=== PATIENT | female | born 1950 | race Caucasian/White ===

== ENCOUNTER 2016-10-20 00:07 | Emergency (ER) | payer MEDICARE ==
[2016-10-20] MEDS ORDERED: SUBLIMAZE 100 MCG/2 ML IV ONE (00:18)
[2016-10-20] MEDS ORDERED: Sodium Chloride 0.9% 1000 ML 1,000 ML IV STA (00:18)
[2016-10-20] MEDS ORDERED: Zofran 4 MG/2 ML VIAL IV ONE (00:18)
[2016-10-20] MEDS ORDERED: SUBLIMAZE 100 MCG/2 ML ONE (00:21)
[2016-10-20] MEDS ORDERED: Sodium Chloride 0.9% 1000 ML 1,000 ML ONE (00:21)
[2016-10-20] MEDS ORDERED: Zofran 4 MG/2 ML VIAL ONE (00:21)
--- NOTE | 2016-10-20 00:21 | ERPHSYRPT ---
- History of Present Illness Time Seen by Provider: 10/20/16 00:19 Historian: patient Exam Limitations: no limitations Physician History: c/o pain in right flank for 1-2 days, c/o dysurea, nausea. no fever Timing/Duration: yesterday Quality: burning, cramping Abdominal Pain Onset Location: flank (right side) Pain Radiation: no radiation Severity of Pain-Max: moderate Severity of Pain-Current: moderate Modifying Factors: Improves With: nothing Allergies/Adverse Reactions: Sulfa (Sulfonamide Antibiotics) Allergy (Unknown, Verified 03/30/15 21:27) Home Medications: Amlodipine Besylate/Benazepril [Lotrel 10-40 mg Capsule] 1 each PO DAILY [History] Glyburide 5 mg [Micronase 5 MG] 5 mg PO DAILY 03/11/15 [History] Hydrochlorothiazide 25 mg [hydroDIURIL 25 MG] 12.5 mg PO DAILY 03/11/15 [ History] Hydrocodone/APAP 10/325 mg [[place] 10/325 MG Tablet] 1 tab PO Q4-6HPRN PRN 03/11/15 [History] Rivaroxaban 10 mg Tablet [Xarelto 10 mg Tablet] 20 mg PO EVENING MEAL [History] Ropinirole HCl 0.5 mg [Requip 0.5 MG] 0.5 mg PO DAILY 03/11/15 [History] Venlafaxine HCl [Effexor Xr] 150 mg PO DAILY 03/11/15 [History] Hx Tetanus, Diphtheria Vaccination/Date Given: Yes Hx Influenza Vaccination/Date Given: Yes Hx Pneumococcal Vaccination/Date Given: No - Review of Systems Constitutional: No Fever, No Chills Eyes: No Symptoms Ears, Nose, & Throat: No Symptoms Respiratory: No Cough, No Dyspnea Cardiac: No Chest Pain, No Edema, No Syncope Abdominal/Gastrointestinal: Abdominal Pain, No Nausea, No Vomiting, No Diarrhea Genitourinary Symptoms: Dysuria, Flank Pain Musculoskeletal: No Back Pain, No Neck Pain Skin: No Rash Neurological: No Dizziness, No Focal Weakness, No Sensory Changes Psychological: No Symptoms Endocrine: No Symptoms All Other Systems: Reviewed and Negative - Past Medical History Pertinent Past Medical History: Yes Neurological History: No Pertinent History ENT History: No Pertinent History Cardiac History: Hypertension, Other Respiratory History: Sleep Apnea Endocrine Medical History: Diabetes Type II Musculoskeletal History: Degenerative Disk Disease, Osteoarthritis GI Medical History: GERD Psycho-Social History: Depression Female Reproductive Disorders: Menstrual Problems Other Medical History: 1/3 of a kidney. Torn rotator cuff right shoulder. 3 leaky valves. Pulmonary Hypertension - Past Surgical History Past Surgical History: Yes Neuro Surgical History: No Pertinent History Cardiac: No Pertinent History Respiratory: No Pertinent History Gastrointestinal: Cholecystectomy Genitourinary: Kidney Surgery Musculoskeletal: No Pertinent History Female Surgical History: Hysterectomy, Tubal Ligation Other Surgical History: nasal septal repair - keloid removal - Social History Smoking Status: Never smoker Exposure to second hand smoke: No Drug Use: none Patient Lives Alone: No - Nursing Vital Signs Nursing Vital Signs: Initial Vital Signs Temperature 98.6 F Temperature Source Oral Pulse Rate 72 Respiratory Rate 16 Blood Pressure [] 160/92 Pain Intensity 8 - Physical Exam General Appearance: no apparent distress, alert Eye Exam: PERRL/EOMI, eyes nml inspection Ears, Nose, Throat Exam: normal ENT inspection, pharynx normal, moist mucous membranes Neck Exam: normal inspection, non-tender, supple, full range of motion Respiratory Exam: normal breath sounds, lungs clear, No respiratory distress Cardiovascular Exam: regular rate/rhythm, normal heart sounds Gastrointestinal/Abdomen Exam: soft, tenderness (right CVA), No mass Back Exam: normal inspection, normal range of motion, No CVA tenderness, No vertebral tenderness Extremity Exam: normal inspection, normal range of motion, pelvis stable Neurologic Exam: alert, oriented x 3, cooperative, normal mood/affect, nml cerebellar function, sensation nml, No motor deficits Skin Exam: normal color, warm, dry - Course Nursing assessment & vital signs reviewed: Yes - CT Exams Abdomen/Pelvis CT Interpretation: Tele-radiologist Report Ordered Tests: Active Orders 24 hr Category Date Time Status IV Insertion STAT Care 10/20/16 00:41 Active ABDOMEN AND PELVIS W/0 CONTRAS [CT] Stat Exams 10/20/16 00:18 Taken CBC W DIFF Stat Lab 10/20/16 00:27 Completed CMP Stat Lab 10/20/16 00:27 Completed UA W/ MICROSCOPIC Stat Lab 10/20/16 00:27 Completed Medication Summary Discontinued Medications Generic Name Dose Route Start Last Admin Trade Name Freq PRN Reason Stop Dose Admin Fentanyl Citrate 50 mcg 10/20/16 00:18 10/20/16 00:25 Sublimaze 100 Mcg/2 Ml IV 10/20/16 00:19 50 mcg STAT ONE Administration Fentanyl Citrate Confirm 10/20/16 00:21 Sublimaze 100 Mcg/2 Ml Administered 10/20/16 00:22 Dose 100 mcg .ROUTE .STK-MED ONE Sodium Chloride 1,000 mls @ 999 mls/hr 10/20/16 00:18 10/20/16 00:25 Sodium Chloride 0.9% 1000 Ml IV 10/20/16 01:18 999 mls/hr .Q1H1M STA Administration Sodium Chloride Confirm 10/20/16 00:21 Sodium Chloride 0.9% 1000 Ml Administered 10/20/16 00:22 Dose 1,000 mls @ ud .ROUTE .STK-MED ONE Ondansetron HCl 4 mg 10/20/16 00:18 10/20/16 00:25 Zofran 4 Mg/2 Ml Vial IV 10/20/16 00:19 4 mg STAT ONE Administration Ondansetron HCl Confirm 10/20/16 00:21 Zofran 4 Mg/2 Ml Vial Administered 10/20/16 00:22 Dose 4 mg .ROUTE .STK-MED ONE Lab/Rad Data: Laboratory Result Diagrams 10/20/16 00:27 10/20/16 00:27 Laboratory Results 10/20/16 10/20/16 10/20/16 Range/Units 00:27 00:27 00:27 WBC 7.6 (4.0-10.5) K/mm3 RBC 4.45 (4.1-5.4) M/mm3 Hgb 13.9 (12.0-16.0) gm/dl Hct 41.9 (35-47) % MCV 94.2 (78-100) fl MCH 31.2 (26-32) pg MCHC 33.2 (32-36) g/dl RDW 12.8 (11.5-14.0) % Plt Count 162 (150-450) K/mm3 MPV 10.4 H (6-9.5) fl Gran % 55.7 (36.0-66.0) % Lymphocytes % 33.2 (24.0-44.0) % Monocytes % 8.2 (0.0-12.0) % Eosinophils % 2.5 (0.00-5.0) % Basophils % 0.4 (0.0-0.4) % Basophils # 0.03 (0-0.4) Sodium 146 H (136-145) mEq/L Potassium 4.1 (3.5-5.1) mEq/L Chloride 107 (98-107) mEq/L Carbon Dioxide 31.6 (21-32) mEq/L Anion Gap 11.2 (5-15) MEQ/L BUN 18 (9-20) mg/dL Creatinine 0.97 (0.55-1.30) mg/dl Estimated GFR > 60 ML/MIN Glucose 239 H (70-110) MG/DL Calcium 10.5 H (8.5-10.1) mg/dL Total Bilirubin 0.30 (0.2-1.0) mg/dL AST 16 (15-37) U/L ALT 23 (12-78) U/L Alkaline Phosphatase 143 H (46-116) U/L Serum Total Protein 6.7 (6.4-8.2) gm/dL Albumin 3.6 (3.4-5.0) g/dL Ur Collection Type CCMS Urine Color YELLOW (YELLOW) Urine Appearance SLIGHTLY CLOUDY (CLEAR) Urine pH 5.0 (5-6) Ur Specific [place] 1.030 (1.005-1.025) Urine Protein NEGATIVE (Negative) Urine Ketones NEGATIVE (NEGATIVE) Urine Blood TRACE NON-HEM (0-5) Osvaldo/ul Urine Nitrite NEGATIVE (NEGATIVE) Urine Bilirubin NEGATIVE (NEGATIVE) Urine Urobilinogen NORMAL (0-1) mg/dL Ur Leukocyte Esterase NEGATIVE (NEGATIVE) Urine Microscopic RBC 0-2 (0-2) /HPF Urine Microscopic WBC 0-2 (0-5) /HPF Ur Epithelial Cells MODERATE (FEW) /HPF Calcium Oxalate Crystal 10-25 (NEGATIVE) /HPF Urine Bacteria RARE (NEGATIVE) /HPF Urine Glucose NEGATIVE (NEGATIVE) mg/dL Specimen Received 10-20-16 0030 - Progress Progress: improved Counseled pt/family regarding: lab results, diagnosis, need for follow-up, rad results - Departure Time of Disposition: 01:48 Departure Disposition: Home Clinical Impression: Flank pain, chronic Condition: Stable Critical Care Time: Yes Critical Care Time(excluding separately billable procedures): 30-74 minutes Referrals: AMADEO CHAVEZ MD [Primary Care Provider] - Instructions: Abdominal Pain-Adult Additional Instructions: ABDOMINAL PAIN 1. There are several different causes for abdominal pain, some of which may not be able to be identified on initial examination. 2. The important thing to remember is that bodily functions can change in a short period of time. If you notice any of the following symptoms, return to the emergency department or consult your doctor immediately: A. Worsening pain or no improvement in the next 12 hours. B. Increasing, severe abdominal pain C. Blood in stool D. Black stools E. Persistent vomiting F. Fever or chills or other symptoms
[2016-10-20 00:30] LABS: BASOPHIL % 0.4 % (0.0-0.4); Eosinophil % 2.5 % (0.00-5.0); Granulocytes % 55.7 % (36.0-66.0); Lymphocytes % 33.2 % (24.0-44.0); Mean Cell Volume 94.2 fl (78-100); Mean Corpuscular Hemoglobin 31.2 pg (26-32); Mean Platelet Volume 10.4 fl (6-9.5); Monocytes % 8.2 % (0.0-12.0); Platelet Count 162 K/mm3 (150-450); Red Blood Count 4.45 M/mm3 (4.1-5.4); Red Cell Distribution Width 12.8 % (11.5-14.0); White Blood Count 7.6 K/mm3 (4.0-10.5)
[2016-10-20 00:42] LABS: ADD URINE CULTURE? NO (NO); Bacteria RARE /HPF (NEGATIVE); Bilirubin NEGATIVE (NEGATIVE); Blood TRACE NON-HEM Ery/ul (0-5); COMPLETE URINE MICROSCOPIC? YES; Collection Type CCMS; Epithelial Cells MODERATE /HPF (FEW); Glucose NEGATIVE (NEGATIVE); Leukocyte Esterase NEGATIVE (NEGATIVE); WBC 0-2 /HPF (0-5)
[2016-10-20 00:52] LABS: ALBUMIN 3.6 g/dL (3.4-5.0); ALKALINE PHOSPHATASE 143 U/L (46-116); ANION GAP 11.2 MEQ/L (5-15); BLOOD UREA NITROGEN 18 mg/dL (9-20); CHLORIDE 107 mEq/L (98-107); Carbon Dioxide 31.6 mEq/L (21-32); Glucose 239 MG/DL (70-110); Potassium 4.1 mEq/L (3.5-5.1); SGOT/AST 16 U/L (15-37); SGPT/ALT 23 U/L (12-78); SODIUM 146 mEq/L (136-145); Total Protein 6.7 gm/dL (6.4-8.2)
[2016-10-20 00:55] VITALS: BP 160/92; O2SAT 94
[2016-10-20 02:08] VITALS: PULSE 72
--- NOTE | 2016-10-20 06:51 | XRAY ---
Indication: Right flank pain. History of renal stones. Multiple contiguous axial images obtained through the abdomen and pelvis without contrast as ordered. Comparison: CT renal stone study March 31, 2015. Lung bases again demonstrates minimal bibasilar atelectasis/scarring. Heart is not enlarged. Again small hiatal hernia. No renal calculus or evidence for obstructive uropathy in either system. Stable 5.7 cm right renal and 3 cm left upper pole exophytic cysts. Stable faint amorphic calcifications in the right upper renal pole. Stable probable left lobe 3 cm hepatic cyst. Again previous cholecystectomy and scattered calcified splenic granulomas. Noncontrasted stomach and bowel loops appear nonobstructed. Normal appendix. Remaining pancreas, adrenal glands, bladder, and aorta appear unremarkable for noncontrast exam. Osseous structures intact again with mild degenerative changes throughout the spine. Impression: 1. Negative renal calculus or evidence for obstructive uropathy. Stable bilateral renal cysts and right upper pole amorphic calcifications. 2. Stable hepatic cyst and small hiatal hernia. 3. No new or acute intra-abdominal/pelvic abnormalities on this noncontrast exam. Comment: Preliminary interpretation was made by [facility]. No discrepancy. CTDI 23.68
== END 2016-10-20 02:10 | disposition home or self-care (01) ==
LOC: ED 00:07
DX: R10.9 Unspecified abdominal pain (principal); R30.0 Dysuria; I10 Essential (primary) hypertension; E11.9 Type 2 diabetes mellitus without complications
CPT/HCPCS: 36000; 36415; 74176; 80053; 81000; 85025; 96360; 96374; 96375; 99284; J2405; J3010

== ENCOUNTER 2017-06-01 16:25 | Emergency (ER) | payer MEDICARE ==
[2017-06-01] MEDS ORDERED: NORCO 5/325 MG PO ONE (17:01)
--- NOTE | 2017-06-01 17:01 | ERPHSYRPT ---
- History of Present Illness Time Seen by Provider: 06/01/17 16:48 Source: patient Patient Subjective Stated Complaint: pt here for pain to right foot since yesterday, no injury. pain to top of foot Triage Nursing Assessment: pt alert, resp easy, skin w/d/p,waliked in with cane, . had strong ppp to right foot Physician History: CC: right foot pain Hx: 66 y/o patient of Dr Chavez with right foot pain since yesterday. She has been to [place] today with family. Pain worse. Radiates up her leg. No fever, chills, redness, or swelling. No hx of gout. No discreet injury. She wears diabetic shoes. She took APAP without relief. She takes blood thinners and has AICD. Allergies/Adverse Reactions: Sulfa (Sulfonamide Antibiotics) Allergy (Unknown, Verified 06/01/17 16:46) Home Medications: Glyburide 5 mg [Micronase 5 MG] 5 mg PO DAILY 03/11/15 [History] Rivaroxaban 10 mg Tablet [Xarelto 10 mg Tablet] 20 mg PO EVENING MEAL [History] Ropinirole HCl 0.5 mg [Requip 0.5 MG] 0.5 mg PO DAILY 03/11/15 [History] Venlafaxine HCl [Effexor Xr] 150 mg PO DAILY 03/11/15 [History] Carvedilol [Carvedilol] 6.25 mg DAILY 06/01/17 [History] Furosemide [Furosemide] 40 mg BID 06/01/17 [History] Metformin HCl 1,000 mg BID 06/01/17 [History] Potassium Chloride 20 Meq [Klor-Con 20 MEQ] 20 meq DAILY 06/01/17 [History] Hx Tetanus, Diphtheria Vaccination/Date Given: Yes Hx Influenza Vaccination/Date Given: No Hx Pneumococcal Vaccination/Date Given: Yes Immunizations Up to Date: Yes - Review of Systems Constitutional: No Fever, No Chills Eyes: No Symptoms Ears, Nose, & Throat: No Symptoms Musculoskeletal: Joint Pain (right foot), No Back Pain, No Neck Pain Skin: No Rash, No Skin Lesions Neurological: No Focal Weakness, No Headache, No Parasthesia All Other Systems: Reviewed and Negative - Past Medical History Pertinent Past Medical History: Yes Neurological History: No Pertinent History ENT History: No Pertinent History Cardiac History: Congestive Heart Failure, Coronary Artery Disease, Hypertension , Other Respiratory History: Sleep Apnea Endocrine Medical History: Diabetes Type II Musculoskeletal History: Degenerative Disk Disease, Osteoarthritis GI Medical History: GERD Psycho-Social History: Depression Female Reproductive Disorders: Menstrual Problems Other Medical History: 1/3 of a kidney. Torn rotator cuff right shoulder. 3 leaky valves. Pulmonary Hypertension - Past Surgical History Past Surgical History: Yes Neuro Surgical History: No Pertinent History Cardiac: No Pertinent History Respiratory: No Pertinent History Gastrointestinal: Cholecystectomy Genitourinary: Kidney Surgery Musculoskeletal: No Pertinent History Female Surgical History: Hysterectomy, Tubal Ligation Other Surgical History: nasal septal repair - keloid removal, pacemaker/defib - Social History Smoking Status: Never smoker Exposure to second hand smoke: No Drug Use: none Patient Lives Alone: No - Female History Hx Last Menstrual Period: post Hx Now: No - Nursing Vital Signs Nursing Vital Signs: Initial Vital Signs Temperature 97.0 F 06/01/17 16:38 Pulse Rate 77 06/01/17 16:38 Respiratory Rate 16 06/01/17 16:38 Blood Pressure 190/107 06/01/17 16:38 O2 Sat by Pulse Oximetry 99 06/01/17 16:38 Pain Scale Pain Intensity 6 - Physical Exam General Appearance: alert Eyes, Ears, Nose, Throat Exam: moist mucous membranes Neck Exam: normal inspection, non-tender, supple Cardiovascular/Respiratory Exam: normal breath sounds, regular rate/rhythm Gastrointestinal/Abdominal Exam: non-tender, soft Neuro/Tendon Exam: normal sensation, normal motor functions Mental Status Exam: alert, oriented x 3, cooperative Skin Exam: warm, dry, No rash SpO2 Interpretation: normal SpO2: 99 Oxygen Delivery: Room Air Comments: right frame tender in medial plantar area, no MTP pain or swelling. Pulse intact. Deep soft tissue pain all over leg bilateral. No swelling. - Course Nursing assessment & vital signs reviewed: Yes - Radiology Exams right foot/lower leg X-ray Interpretation: Reviewed by me, No Fracture (heel spur, osteopenia) Ordered Tests: Active Orders 24 hr Category Date Time Status Cold Application STAT Care 06/01/17 16:56 Active Splint STAT Care 06/01/17 16:56 Active FOOT (MINIMUM 3 VIEWS) Stat Exams 06/01/17 16:57 Taken LOWER LEG Stat Exams 06/01/17 16:57 Taken Medication Summary Discontinued Medications Generic Name Dose Route Start Last Admin Trade Name Freq PRN Reason Stop Dose Admin Hydrocodone Bitart/Acetaminophen 1 tab 06/01/17 17:01 06/01/17 17:07 [place] 5/325 Mg PO 06/01/17 17:02 1 tab STAT ONE Administration Hydrocodone Bitart/Acetaminophen Confirm 06/01/17 17:06 [place] 5/325 Mg Administered 06/01/17 17:07 Dose 1 tab .ROUTE .STK-MED ONE - Progress Progress Note: 06/01/17 17:46 She ambulated to BR. Will use darco shoe and norco and follow up with Dr Chavez next week. No sign to suggest infection or gout at this time. Counseled pt/family regarding: diagnosis, need for follow-up, rad results - Departure Time of Disposition: 17:46 Departure Disposition: Home Clinical Impression: Right foot pain Condition: Stable Critical Care Time: No Referrals: AMADEO CHAVEZ MD [Primary Care Provider] - Instructions: Foot Sprain (DC) Additional Instructions: Darco post op shoe. Rx norco for pain- no driving. Follow up with Dr Chavez this week. Prescriptions: Hydrocodone Bit/Acetaminophen [[place] 5-325 Tablet] 1 each PO Q6H PRN PRN #10 tablet MDD 4 PRN Reason: Pain
[2017-06-01] MEDS ORDERED: NORCO 5/325 MG ONE (17:06)
[2017-06-01 17:49] VITALS: BP 167/73; PULSE 82
[2017-06-01 17:50] VITALS: O2SAT 100
--- NOTE | 2017-06-01 20:54 | XRAY ---
Indication: Chronic pain. No known injury. Comparison: None 2 views of the right lower leg demonstrates mild osteopenia, tibial tuberosity spur, small plantar heel spur, and tiny anterior lower leg soft tissue calcific granulomas. No other bony, articular, or soft tissue abnormalities.
--- NOTE | 2017-06-01 20:54 | XRAY ---
Indication: Chronic pain. No known injury. Comparison: None 3 nonweightbearing views of the right foot demonstrates mild osteopenia, small plantar heel spur, and tiny medial ankle soft tissue foreign body. No other bony, articular, or soft tissue abnormalities.
== END 2017-06-01 17:54 | disposition home or self-care (01) ==
LOC: ED 16:25
DX: M79.671 Pain in right foot (principal); I10 Essential (primary) hypertension; I50.9 Heart failure, unspecified; Z79.01 Long term (current) use of anticoagulants; E11.9 Type 2 diabetes mellitus without complications
CPT/HCPCS: 73590; 73630; 99283; 99284; A9270-GY

== ENCOUNTER 2017-11-11 17:13 | Emergency (ER) | payer MEDICARE ==
[2017-11-11 17:47] LABS: ALKALINE PHOSPHATASE 156 U/L (38-126); ANION GAP 12.6 MEQ/L (5-15); BLOOD UREA NITROGEN 24 mg/dL (7-17); CHLORIDE 106 mmol/L (98-107); Calcium 10.5 mg/dL (8.4-10.2); Carbon Dioxide 29 mmol/L (22-30); Creatinine 1 0.96 mg/dL (0.52-1.04); Glucose 246 mg/dL (74-106); Potassium 4.8 mmol/L (3.5-5.1); SGOT/AST 19 U/L (14-36); SGPT/ALT 14 U/L (0-35); SODIUM 142 mmol/L (137-145); Total Protein 6.8 g/dL (6.3-8.2)
--- NOTE | 2017-11-11 17:48 | ERPHSYRPT ---
- History of Present Illness Source: patient Exam Limitations: no limitations Patient Subjective Stated Complaint: pt sent from [facility] to be seen fo sob and to get a cta, pt states she has sob for 4 weeks, worse with excertion,hx of chf,cough dry, no fever Triage Nursing Assessment: pt alert, resp easy at rest, skin w/d/p. chest clear Timing/Duration: week(s) (3-4), intermittent Activities at Onset: activity Severity of Dyspnea-Max: mild Severity of Dyspnea-Current: mild Possible Cause: occasional episodes Modifying Factors: Improves With: coughing (worsens), exertion (worsens), rest ( improves) Associated Symptoms: intermittent, cough, weakness, No lightheadedness, No wheezing, No ankle swelling, No calf pain, No dizziness, No heaviness, No heart racing, No lightheadedness, No leg swelling, No productive cough, No sweating, No tightness, No tingling face, No tingling hands Hx Tetanus, Diphtheria Vaccination/Date Given: Yes Hx Influenza Vaccination/Date Given: Yes Hx Pneumococcal Vaccination/Date Given: Yes Immunizations Up to Date: Yes <KEN DELGADILLO - Last Filed: 11/11/17 19:07> <BIRDIE REYNAGA - Last Filed: 11/11/17 21:48> - History of Present Illness Time Seen by Provider: 11/11/17 17:43 Physician History: Patient with history of CHF and diabetes, who presents with shortness of breath for past 34 weeks. Patient notes shortness of breath is worse with activity. Patient states taking a shower this morning made her short of breath. Patient also with palpitation, dry cough and ?gen. weakness, but denies any chest pain, diaphoresis, nausea, vomiting, fever, chills, abdominal/back pain and urinary symptoms.. (KEN DELGADILLO) Allergies/Adverse Reactions: Sulfa (Sulfonamide Antibiotics) Allergy (Unknown, Verified 11/11/17 17:27) Home Medications: Glyburide 5 mg [Micronase 5 MG] 5 mg PO DAILY 03/11/15 [History] Rivaroxaban 10 mg Tablet [Xarelto 10 mg Tablet] 20 mg PO EVENING MEAL [History] Ropinirole HCl 0.5 mg [Requip 0.5 MG] 0.5 mg PO DAILY 03/11/15 [History] Venlafaxine HCl [Effexor Xr] 150 mg PO DAILY 03/11/15 [History] Carvedilol 6.25 mg DAILY 06/01/17 [History] Furosemide 40 mg BID 06/01/17 [History] Metformin HCl 1,000 mg BID 06/01/17 [History] Potassium Chloride 20 Meq [Klor-Con 20 MEQ] 20 meq DAILY 06/01/17 [History] - Review of Systems Constitutional: Weakness, No Fever, No Chills Eyes: No Symptoms Ears, Nose, & Throat: No Symptoms Respiratory: Cough (dry), No Dyspnea Cardiac: Palpitations, No Chest Pain, No Edema, No Syncope Abdominal/Gastrointestinal: No Symptoms, No Abdominal Pain, No Nausea, No Vomiting, No Diarrhea Genitourinary Symptoms: No Symptoms, No Dysuria Musculoskeletal: No Symptoms, No Back Pain, No Neck Pain Skin: No Symptoms, No Rash Neurological: No Symptoms, No Dizziness, No Focal Weakness, No Sensory Changes Psychological: No Symptoms Endocrine: No Symptoms Hematologic/Lymphatic: No Symptoms Immunological/Allergic: No Symptoms All Other Systems: Reviewed and Negative <KEN DELGADILLO - Last Filed: 11/11/17 19:07> - Past Medical History Pertinent Past Medical History: Yes Neurological History: No Pertinent History ENT History: No Pertinent History Cardiac History: Congestive Heart Failure, Coronary Artery Disease, Hypertension , Other Respiratory History: Sleep Apnea Endocrine Medical History: Diabetes Type II Musculoskeletal History: Arthritis, Degenerative Disk Disease, Osteoarthritis GI Medical History: GERD Psycho-Social History: Depression Female Reproductive Disorders: Menstrual Problems Other Medical History: 1/3 of a kidney. Torn rotator cuff right shoulder. 3 leaky valves. Pulmonary Hypertension - Past Surgical History Past Surgical History: Yes Neuro Surgical History: No Pertinent History Cardiac: No Pertinent History, Internal Defibrillator, Pacemaker Respiratory: No Pertinent History Gastrointestinal: Cholecystectomy Genitourinary: Kidney Surgery Musculoskeletal: No Pertinent History Female Surgical History: Hysterectomy, Tubal Ligation Other Surgical History: nasal septal repair - keloid removal, pacemaker/defib - Social History Smoking Status: Never smoker Exposure to second hand smoke: No Drug Use: none Patient Lives Alone: No - Female History Hx Last Menstrual Period: post Hx Now: No <KEN DELGADILLO - Last Filed: 11/11/17 19:07> - Physical Exam General Appearance: no apparent distress, alert Eye Exam: PERRL/EOMI Ears, Nose, Throat Exam: hearing grossly normal Neck Exam: normal inspection, supple Respiratory Exam: normal breath sounds, lungs clear Cardiovascular/Chest Exam: normal heart sounds, regular rate/rhythm Abdominal/Gastrointestinal Exam: soft, normal bowel sounds, No tenderness, No distention, No mass Extremity Exam: non-tender, normal range of motion, normal inspection, no calf tenderness, no pedal edema Neurologic Exam: alert, oriented x 3, cooperative, lip cutter and scorer II-XII nml as tested, sensation nml, No motor deficits Skin Exam: normal color, warm, No dry SpO2 Interpretation: normal SpO2: 96 <KEN DELGADILLO - Last Filed: 11/11/17 19:07> - Nursing Vital Signs Nursing Vital Signs: Initial Vital Signs Temperature 97.9 F 11/11/17 17:22 Pulse Rate 85 11/11/17 17:22 Respiratory Rate 16 11/11/17 17:22 Blood Pressure 144/95 11/11/17 17:22 O2 Sat by Pulse Oximetry 96 11/11/17 17:22 Pain Scale Pain Intensity 2 - Course Nursing assessment & vital signs reviewed: Yes EKG Interpreted by Me: RATE, Other (Paced rhythm) <KEN DELGADILLO - Last Filed: 11/11/17 19:07> - Course EKG Interpreted by Me: Other - Radiology Exams Chest X-ray Interpretation: Reviewed by me, Teleradiologist Report (Dr Hutchins), Negative , Other (nonacute chest; heart at upper limits of normal.) Right Wrist X-ray Interpretation: Reviewed by me, Teleradiologist Report (per Dr Hutchins), Negative, No Fracture - CT Exams Chest CT Interpretation: Tele-radiologist Report (Per Dr Hutchins), No PE, Other ( cardiomeg with small bilateral pleural effusions) <BIRDIE REYNAGA - Last Filed: 11/11/17 21:48> Ordered Tests: Active Orders 24 hr Category Date Time Status CHEST WITH CONTRAST [CT] Stat Exams 11/11/17 17:34 Taken CMP Stat Lab 11/11/17 13:23 Completed TROPONIN Q3H Lab 11/11/17 13:23 Completed Medication Summary Discontinued Medications Generic Name Dose Route Start Last Admin Trade Name Adriana PRN Reason Stop Dose Admin Furosemide 20 mg 11/11/17 18:17 11/11/17 19:04 Lasix 40 Mg/4 Ml IV 11/11/17 18:18 20 mg STAT ONE Administration Furosemide Confirm 11/11/17 18:55 Lasix 40 Mg/4 Ml Administered 11/11/17 18:56 Dose 40 mg .ROUTE .STK-MED ONE Lab/Rad Data: Laboratory Result Diagrams 11/11/17 13:23 Laboratory Results 11/11/17 11/11/17 Range/Units 13:23 13:23 Sodium 142 (137-145) mmol/L Potassium 4.8 (3.5-5.1) mmol/L Chloride 106 (98-107) mmol/L Carbon Dioxide 29 (22-30) mmol/L Anion Gap 12.6 (5-15) MEQ/L BUN 24 H (7-17) mg/dL Creatinine 0.96 (0.52-1.04) mg/dL Estimated GFR > 60.0 ML/MIN Glucose 246 H (74-106) mg/dL Calcium 10.5 H (8.4-10.2) mg/dL Total Bilirubin 1.00 (0.2-1.3) mg/dL AST 19 (14-36) U/L ALT 14 (0-35) U/L Alkaline Phosphatase 156 H (38-126) U/L Troponin I 0.023 (0.000-0.034) ng/mL Serum Total Protein 6.8 (6.3-8.2) g/dL Albumin 4.0 (3.5-5.0) g/dL - Progress Progress: improved Air Movement: good Blood Culture(s) Obtained: No Counseled pt/family regarding: lab results, diagnosis, rad results <KEN DELGADILLO - Last Filed: 11/11/17 19:07> - Progress Counseled pt/family regarding: need for follow-up <BIRDIE REYANGA - Last Filed: 11/11/17 21:48> - Progress Progress Note: 11/11/17 18:52 Pt. sitting comfortably, no resp. distress, O2 sat > 96% on RA. Will get chest CT due to elevated D-dimer 11/11/17 19:01 (KEN DELGADILLO) 11/11/17 19:21 Pt care discussed and care accepted from Dr Delgadillo at 19:00. (BIRDIE REYNAGA) <KEN DELGADILLO - Last Filed: 11/11/17 19:07> - Departure Time of Disposition: 21:46 Departure Disposition: Home Critical Care Time: No <BIRDIE REYNAGA - Last Filed: 11/11/17 21:48> - Departure Clinical Impression: CHF (congestive heart failure) Condition: Stable Referrals: AMADEO CHAVEZ MD [Primary Care Provider] - Instructions: Heart Failure Additional Instructions: You have a mild exacerbation of congestive heart failure. The CT scan of your chest showed some small amounts of fluid on your lungs. You were given Lasix 20 mg by IV in the ER. Increase your dose of daily Lasix to 60 mg 2 times a day for 3 days. Follow-up with your primary medical doctor in 2-3 days.
[2017-11-11] MEDS ORDERED: Lasix 40 MG/4 ML IV ONE (18:17)
[2017-11-11] MEDS ORDERED: Lasix 40 MG/4 ML ONE (18:55)
[2017-11-11 21:12] VITALS: BP 130/84; PULSE 76; O2SAT 94
--- NOTE | 2017-11-12 08:48 | XRAY ---
Indication: Short of breath and dyspnea on exertion. Multiple contiguous axial images obtained through the chest using 100 cc Isovue 370 contrast and PE protocol. Comparison: None There is satisfactory opacification of the pulmonary arteries to include the lobar and segmental branches. No filling defect or pulmonary embolus. Heart is enlarged with left-sided pacemaker. Aorta is normal in course and caliber without aneurysm/dissection. A few tiny mediastinal and bilateral perihilar calcified nodes. No pathologic mediastinal/hilar lymphadenopathy. Small hiatal hernia. Examination of the lung parenchyma demonstrates small bilateral effusions with mild dependent atelectasis, left greater than right. Lingular calcified granuloma. No suspicious pulmonary mass or infiltrate. Bony thorax intact with flowing osteophytes throughout the spine. Limited upper abdomen demonstrates fatty liver, 5.6 cm right renal cyst, nonobstructing 4 mm left renal calculus, calcified splenic granulomas, and cholecystectomy clips. Impression: 1. Negative pulmonary embolus. 2. Cardiomegaly with bilateral effusions favoring cardiac decompensation. 3. Incidental small hiatal hernia, fatty liver, right renal cyst, nonobstructing left renal micro-calculus, and evidence for old granulomatous disease. CT DI 23.68
== END 2017-11-11 22:01 | disposition home or self-care (01) ==
LOC: ED 17:13
DX: I50.9 Heart failure, unspecified (principal); R06.02 Shortness of breath; E11.9 Type 2 diabetes mellitus without complications; Z79.899 Other long term (current) drug therapy
CPT/HCPCS: 36415; 71046; 71260; 73110; 80053; 83880; 84484; 85025; 85379; 93005; 96374; 99284; J1940

== ENCOUNTER 2018-01-01 13:27 | Observation (INO) | payer MEDICARE ==
[2018-01-01] MEDS ORDERED: NITRO-BID 2% UD PACKETS TOP ONE (13:58)
[2018-01-01] MEDS ORDERED: CAPTOPRIL 25 MG PO ONE (14:00)
[2018-01-01] MEDS ORDERED: NITRO-BID 2% UD PACKETS ONE (14:24)
[2018-01-01] MEDS ORDERED: CAPTOPRIL 25 MG ONE (14:25)
[2018-01-01] MEDS: Sodium Chloride 0.9% 1000 ML 1,000 ML IV SCH (14:33)
--- NOTE | 2018-01-01 14:44 | XRAY ---
Indication: Short of breath. Comparison: November 11, 2017. Portable chest again demonstrates borderline cardiomegaly with left-sided dual-lead pacemaker. Vascularity normal. Lungs clear. Bony thorax intact again with mild osteopenia and degenerative changes. Impression: Borderline cardiomegaly. Negative for acute pneumonic process or CHF.
[2018-01-01 14:48] LABS: ALBUMIN 3.5 g/dL (3.5-5.0); ALKALINE PHOSPHATASE 116 U/L (38-126); BLOOD UREA NITROGEN 18 mg/dL (7-17); CHLORIDE 105 mmol/L (98-107); Calcium 9.7 mg/dL (8.4-10.2); Carbon Dioxide 29 mmol/L (22-30); Creatinine 1 0.85 mg/dL (0.52-1.04); Glucose 211 mg/dL (74-106); NT PRO BNP 4340 pg/mL (0-900); Potassium 3.5 mmol/L (3.5-5.1); SGOT/AST 13 U/L (14-36); SGPT/ALT 15 U/L (0-35); SODIUM 142 mmol/L (137-145); Total Protein 5.9 g/dL (6.3-8.2)
[2018-01-01 15:01] LABS: BASOPHIL % 0.2 % (0.0-0.4); Basophil (Absolute #) 0.01 (0-0.4); Eosinophil % 0.9 % (0.00-5.0); Eosinophil (Absolute #) 0.05 (0-0.5); Granulocyte Absolute (ANC) 3.31 (1.4-6.9); Granulocytes % 62.8 % (36.0-66.0); Hematocrit 37.3 % (35-47); Hemoglobin 12.9 gm/dl (12.0-16.0); Lymphocyte (Absolute #) 1.59 (1.0-4.6); Lymphocytes % 30.2 % (24.0-44.0); Mean Cell Volume 92.8 fl (78-100); Mean Corpuscular Hgb Concent. 34.6 g/dl (32-36); Mean Platelet Volume 11.9 fl (6-9.5); Monocyte (Absolute #) 0.31 (0.0-1.3); Monocytes % 5.9 % (0.0-12.0); Platelet Count 121 K/mm3 (150-450); Red Blood Count 4.02 M/mm3 (4.1-5.4); White Blood Count 5.3 K/mm3 (4.0-10.5)
--- NOTE | 2018-01-01 15:05 | ERPHSYRPT ---
- History of Present Illness Time Seen by Provider: 01/01/18 13:35 Source: patient Exam Limitations: no limitations Patient Subjective Stated Complaint: C/o being SOB X 3 weeks, increasing getting worse. trouble sleeping at night, unable flat, SOB with exertion Triage Nursing Assessment: Pt back to room on scooter, resp easy, no cough. states feels winded. occassionally taking deep breath, able to speak in full clear sentences. Physician History: patient with progressive SOB x 3 weeks wit LANDIN; increasing orthopnea; wt gain and fluid retention with edema; no CP; no fever or chilss; No N&V Timing/Duration: today (worse), week(s) (3), gradual onset, worse Activities at Onset: emotional stress, rest Severity of Dyspnea-Max: moderate Severity of Dyspnea-Current: moderate Possible Cause: occasional episodes Modifying Factors: Improves With: rest Associated Symptoms: constant, edema, ankle swelling International travel in last 2 weeks: No Allergies/Adverse Reactions: Sulfa (Sulfonamide Antibiotics) Allergy (Unknown, Verified 11/11/17 17:27) Home Medications: Rivaroxaban 10 mg Tablet [Xarelto 10 mg Tablet] 20 mg PO EVENING MEAL [History] Ropinirole HCl 0.5 mg [Requip 0.5 MG] 0.5 mg PO DAILY 03/11/15 [History] Venlafaxine HCl [Effexor Xr] 150 mg PO DAILY 03/11/15 [History] Carvedilol 6.25 mg BID 06/01/17 [History] Furosemide 40 mg BID 06/01/17 [History] Metformin HCl 1,000 mg BID 06/01/17 [History] Potassium Chloride 20 Meq [Klor-Con 20 MEQ] 20 meq DAILY 06/01/17 [History] Hx Tetanus, Diphtheria Vaccination/Date Given: Yes Hx Influenza Vaccination/Date Given: No Hx Pneumococcal Vaccination/Date Given: No Immunizations Up to Date: No - Review of Systems Constitutional: No Symptoms Eyes: No Symptoms Ears, Nose, & Throat: No Symptoms Respiratory: Dyspnea, Dyspnea on Exertion (LANDIN), No Cough, No Cyanosis, No Wheezing Cardiac: Edema, Orthopnea, No Chest Pain, No Palpitations, No Syncope, No PND Abdominal/Gastrointestinal: Abdominal Pain, Vomiting, Diarrhea, Constipation, No Nausea Genitourinary Symptoms: No Symptoms Musculoskeletal: No Symptoms Skin: No Symptoms Neurological: No Symptoms Psychological: No Symptoms Endocrine: No Symptoms Hematologic/Lymphatic: No Symptoms Immunological/Allergic: No Symptoms - Past Medical History Pertinent Past Medical History: Yes Neurological History: No Pertinent History ENT History: No Pertinent History Cardiac History: Congestive Heart Failure, Coronary Artery Disease, Hypertension , Other Respiratory History: Sleep Apnea Endocrine Medical History: Diabetes Type II Musculoskeletal History: Degenerative Disk Disease, Osteoarthritis GI Medical History: GERD History: No Pertinent History Psycho-Social History: Depression Female Reproductive Disorders: Menstrual Problems Other Medical History: 1/3 of a kidney. Torn rotator cuff right shoulder. 3 leaky valves. Pulmonary Hypertension - Past Surgical History Past Surgical History: Yes Neuro Surgical History: No Pertinent History Cardiac: No Pertinent History Respiratory: No Pertinent History Gastrointestinal: Cholecystectomy Genitourinary: Kidney Surgery Musculoskeletal: No Pertinent History Female Surgical History: Hysterectomy, Tubal Ligation Other Surgical History: nasal septal repair - keloid removal, pacemaker/defib - Social History Smoking Status: Never smoker Exposure to second hand smoke: No Alcohol Use: None Drug Use: none Patient Lives Alone: No Significant Family History: heart disease, diabetes, hypertension - Nursing Vital Signs Nursing Vital Signs: Initial Vital Signs Temperature 99.2 F 01/01/18 13:28 Pulse Rate 85 01/01/18 13:28 Respiratory Rate 18 01/01/18 13:28 Blood Pressure 138/91 01/01/18 13:28 O2 Sat by Pulse Oximetry 96 01/01/18 13:28 Pain Scale Pain Intensity 0 - Physical Exam General Appearance: mild distress, alert, obese Eye Exam: PERRL/EOMI, eyes nml inspection, No photophobia Ears, Nose, Throat Exam: hearing grossly normal, normal ENT inspection, normal pharynx Neck Exam: normal inspection, non-tender, supple, full range of motion, JVD ( minimal semiupright), No meningismus, No carotid bruit Respiratory Exam: normal breath sounds, airway intact, diminished breath sounds , No chest tenderness, No respiratory distress, No crackles/rales, No rhonchi, No wheezing, No pleural rub Cardiovascular/Chest Exam: normal heart sounds, regular rate/rhythm, normal peripheral pulses, edema (2+), JVD (minimal), No murmur Abdominal/Gastrointestinal Exam: soft, normal bowel sounds, No tenderness, No guarding, No pulsatile mass, No organomegaly Rectal Exam: deferred Extremity Exam: non-tender, normal range of motion, normal capillary refill, pedal edema (2+), No aguila's sign Peripheral Pulses Exam: carotid (R): 4+, carotid (L): 4+, femoral (R): 4+, femoral (L): 4+, dorsalis-pedis (R): 3+, dorsalis-pedis (L): 3+ Neurologic Exam: alert, oriented x 3, cooperative, 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 as tested, normal mood/affect Skin Exam: normal color, warm, dry, No rash, No cyanosis SpO2 Interpretation: normal SpO2: 96 Oxygen Delivery: Room Air - Course Nursing assessment & vital signs reviewed: Yes EKG Interpreted by Me: RATE (87), Other (pacedrhythm) Rhythm Strip: Rate (87), Normal Sinus Rhythm (paced) - Radiology Exams Chest X-ray Interpretation: Reviewed by me, Teleradiologist Report, Other (CM wit pacemaker) Ordered Tests: Active Orders 24 hr Category Date Time Status Call Admit Doctor for Orders ROUTINE Care 01/01/18 16:05 Active Technical Photographer STAT Care 01/01/18 13:59 Active Code Status Order ROUTINE Care 01/01/18 16:05 Active EKG-ER Only STAT Care 01/01/18 13:58 Active IV Care Q6H Care 01/01/18 16:05 Active IV Insertion STAT Care 01/01/18 13:58 Active Implement CHF Pathway ROUTINE Care 01/01/18 16:[address] in Observation ROUTINE Care 01/01/18 16:05 Active Pulse Oximetry (ED) STAT Care 01/01/18 13:58 Active Telemetry ROUTINE Care 01/01/18 16:05 Active Weight,Daily 0600 Care 01/01/18 16:05 Active Low Sodium Diet 01/01/18 Dinner Active CHEST 1 VIEW (PORTABLE) Stat Exams 01/01/18 13:59 Completed BMP AM.LAB Lab 01/02/18 04:00 Ordered CBC AM.LAB Lab 01/02/18 04:00 Ordered CBC W DIFF Stat Lab 01/01/18 14:15 Completed CMP Stat Lab 01/01/18 14:15 Completed NT PRO BNP AM.LAB Lab 01/02/18 04:00 Ordered NT PRO BNP Stat Lab 01/01/18 14:15 Completed TROPONIN Q3H Lab 01/01/18 14:15 Completed TROPONIN Q3H Lab 01/01/18 17:00 Ordered TROPONIN Q3H Lab 01/01/18 20:00 Ordered TROPONIN Q3H Lab 01/01/18 23:00 Ordered TROPONIN Q3H Lab 01/02/18 02:00 Ordered Oxygen NASAL CANNULA 2 lpm RT 01/01/18 16:05 Active Transfer Order Routine Transfer 01/01/18 Ordered Medication Summary Generic Name Dose Route Start Last Admin Trade Name Freq PRN Reason Stop Dose Admin Sodium Chloride 1,000 mls @ 50 mls/hr 01/01/18 14:00 01/01/18 14:33 Sodium Chloride 0.9% 1000 Ml IV 01/31/18 13:59 50 mls/hr .Q20H LAURA Administration Discontinued Medications Generic Name Dose Route Start Last Admin Trade Name Freq PRN Reason Stop Dose Admin Captopril 25 mg 01/01/18 14:00 01/01/18 14:33 Captopril 25 Mg PO 01/01/18 14:01 25 mg STAT ONE Administration Captopril Confirm 01/01/18 14:25 Captopril 25 Mg Administered 01/01/18 14:26 Dose 25 mg .ROUTE .STK-MED ONE Furosemide 40 mg 01/01/18 16:07 Lasix 40 Mg/4 Ml IV 01/01/18 16:08 STAT ONE Nitroglycerin 1 gm 01/01/18 13:58 01/01/18 14:33 Nitro-Bid 2% Ud Packets TOP 01/01/18 13:59 1 gm STAT ONE Administration Nitroglycerin Confirm 01/01/18 14:24 Nitro-Bid 2% Ud Packets Administered 01/01/18 14:25 Dose 1 gm .ROUTE .STK-MED ONE Lab/Rad Data: Laboratory Result Diagrams 01/01/18 14:15 01/01/18 14:15 Laboratory Results 01/01/18 01/01/18 01/01/18 Range/Units 14:15 14:15 14:15 WBC 5.3 (4.0-10.5) K/mm3 RBC 4.02 L (4.1-5.4) M/mm3 Hgb 12.9 (12.0-16.0) gm/dl Hct 37.3 (35-47) % MCV 92.8 (78-100) fl MCH 32.0 (26-32) pg MCHC 34.6 (32-36) g/dl RDW 13.0 (11.5-14.0) % Plt Count 121 L (150-450) K/mm3 MPV 11.9 H (6-9.5) fl Gran % 62.8 (36.0-66.0) % Eos # (Auto) 0.05 (0-0.5) Absolute Lymphs (auto) 1.59 (1.0-4.6) Absolute Monos (auto) 0.31 (0.0-1.3) Lymphocytes % 30.2 (24.0-44.0) % Monocytes % 5.9 (0.0-12.0) % Eosinophils % 0.9 (0.00-5.0) % Basophils % 0.2 (0.0-0.4) % Absolute Granulocytes 3.31 (1.4-6.9) Basophils # 0.01 (0-0.4) Sodium 142 (137-145) mmol/L Potassium 3.5 (3.5-5.1) mmol/L Chloride 105 (98-107) mmol/L Carbon Dioxide 29 (22-30) mmol/L Anion Gap 11.0 (5-15) MEQ/L BUN 18 H (7-17) mg/dL Creatinine 0.85 (0.52-1.04) mg/dL Estimated GFR > 60.0 ML/MIN Glucose 211 H (74-106) mg/dL Calcium 9.7 (8.4-10.2) mg/dL Total Bilirubin 0.50 (0.2-1.3) mg/dL AST 13 L (14-36) U/L ALT 15 (0-35) U/L Alkaline Phosphatase 116 (38-126) U/L Troponin I 0.027 (0.000-0.034) ng/mL NT-Pro-B Natriuret Pep 4340 H (0-900) pg/mL Serum Total Protein 5.9 L (6.3-8.2) g/dL Albumin 3.5 (3.5-5.0) g/dL reviewed - Progress Progress: improved (after meds), re-examined (after meds) Air Movement: good Progress Note: 01/01/18 15:05 will medicate and recheck; EKG and labs and xr pending 01/01/18 15:06 rechecked and some improvement; EKG paced; CXR borderline CM; labs pending 01/01/18 15:13 BS 211; renal fx ok; lytes ok; p BNP 4340; troponin = 0.027; CBC okplt low at 121; will consult Dr Chavez for Disposition 01/01/18 16:08 Dr Chavez consulted adn will place in OBS Blood Culture(s) Obtained: No Antibiotics given: No Discussed with : Alex (and will palce in obs) Will see patient in: hospital (observation) (dr Chavez) Counseled pt/family regarding: lab results, diagnosis, need for follow-up, rad results - Departure Time of Disposition: 15:30 Departure Disposition: Observation Clinical Impression: SOB (shortness of breath), CHF (congestive heart failure) Condition: Fair Critical Care Time: No Referrals: AMADEO CHAVEZ MD [Primary Care Provider] - Instructions: Heart Failure
[2018-01-01] MEDS ORDERED: Lasix 40 MG/4 ML IV ONE (16:07)
[2018-01-01] MEDS ORDERED: Lasix 40 MG/4 ML ONE (16:18)
[2018-01-01] MEDS: Abilify 10 MG PO SCH (21:45)
[2018-01-01] MEDS: Klor Con 10 MEQ PO SCH (21:45)
[2018-01-01] MEDS: Coreg 6.25 MG PO SCH (21:46)
[2018-01-01] MEDS: ENTRESTO 49 MG-51 MG TABLET PO SCH (21:46)
[2018-01-01] MEDS: Lasix 40 MG/4 ML IV SCH (21:46)
[2018-01-01] MEDS: XARELTO 10 MG TABLET PO SCH (21:46)
[2018-01-01] MEDS: DESYREL 50 MG PO SCH (21:46)
[2018-01-02 02:53] LABS: Hematocrit 35.1 % (35-47); Mean Cell Volume 93.6 fl (78-100); Mean Corpuscular Hgb Concent. 34.2 g/dl (32-36); Mean Platelet Volume 11.9 fl (6-9.5); Platelet Count 113 K/mm3 (150-450); Red Blood Count 3.75 M/mm3 (4.1-5.4); Red Cell Distribution Width 12.9 % (11.5-14.0); White Blood Count 5.1 K/mm3 (4.0-10.5)
[2018-01-02 03:26] LABS: ANION GAP 10.2 MEQ/L (5-15); BLOOD UREA NITROGEN 17 mg/dL (7-17); CHLORIDE 101 mmol/L (98-107); Calcium 9.5 mg/dL (8.4-10.2); Carbon Dioxide 31 mmol/L (22-30); Creatinine 1 0.84 mg/dL (0.52-1.04); Glucose 221 mg/dL (74-106); NT PRO BNP 3600 pg/mL (0-900); Potassium 3.7 mmol/L (3.5-5.1); SODIUM 139 mmol/L (137-145)
[2018-01-02] MEDS ORDERED: Requip 0.5 MG PO PRN (07:51)
[2018-01-02] MEDS: Sodium Chloride 0.9% 1000 ML 1,000 ML IV SCH (07:56)
[2018-01-02] MEDS: Lasix 40 MG/4 ML IV SCH ×2 (07:57→21:43)
[2018-01-02] MEDS: ENTRESTO 49 MG-51 MG TABLET PO SCH ×2 (08:00→21:44)
[2018-01-02] MEDS: Coreg 6.25 MG PO SCH ×2 (08:00→21:42)
--- NOTE | 2018-01-02 08:38 | PCM.HP ---
History of Present Illness - Chief Complaint Chief Complaint: CHF History of Present Illness: is a 67 year old female who presented to the ER yesterday with a several week history of shortness of breath, swelling and PND. She has a history of chf, no cough, fever or sputum production. - Review of Systems Constitutional: No Fever, No Chills Ears, Nose, & Throat: No Symptoms Respiratory: Orthopnea, Short Of Breath, No Wheezing Cardiac: Edema, Orthopnea, PND Abdominal/Gastrointestinal: No Abdominal Pain, No Nausea, No Vomiting, No Diarrhea Genitourinary Symptoms: No Dysuria Skin: No Rash Neurological: No Dizziness, No Focal Weakness, No Sensory Changes All Other Systems: Reviewed and Negative Medications & Allergies Home Medications: Home Medication List Rivaroxaban 10 mg Tablet [Xarelto 10 mg Tablet] 20 mg PO HS 03/11/15 [ History Confirmed 01/01/18] Ropinirole HCl 0.5 mg [Requip 0.5 MG] 0.5 mg PO DAILY PRN 03/11/15 [ History Confirmed 01/01/18] Venlafaxine HCl [Effexor Xr] 150 mg PO DAILY 03/11/15 [History Confirmed ] Carvedilol 6.25 mg BID 06/01/17 [History Confirmed 01/01/18] Furosemide 40 mg BID 06/01/17 [History Confirmed 01/01/18] Metformin HCl 1,000 mg DAILY 06/01/17 [History Confirmed 01/01/18] Potassium Chloride 20 Meq [Klor-Con 20 MEQ] 20 meq HS 06/01/17 [History Confirmed 01/01/18] Aripiprazole [Abilify] 5 mg PO HS 01/01/18 [History Confirmed 01/01/18] Sacubitril/Valsartan [Entresto 24 mg-26 mg Tablet] 1 tablet PO BID 01/01/18 [ History Confirmed 01/01/18] Trazodone HCl 50 mg PO HS 01/01/18 [History Confirmed 01/01/18] Allergies/Adverse Reactions: Allergies Allergy/AdvReac Type Severity Reaction Status Date / Time Sulfa (Sulfonamide Allergy Unknown Verified 11/11/17 17:27 Antibiotics) - Past Medical History Past Medical History: Yes Neurological History: No Pertinent History ENT History: No Pertinent History Cardiac History: Congestive Heart Failure, Coronary Artery Disease, Hypertension , Other Respiratory History: Sleep Apnea Endocrine Medical History: Diabetes Type II Musculoskelatal History: Degenerative Disk Disease, Osteoarthritis GI Medical History: GERD History: No Pertinent History Pyscho-Social History: Depression Reproductive Disorders: Menstrual Problems Comment: 1/3 of a kidney. Torn rotator cuff right shoulder. 3 leaky valves. Pulmonary Hypertension - Female History Are you now?: No - Past Surgical History Past Surgical History: Yes Neuro Surgical History: No Pertinent History Cardiac History: No Pertinent History Respiratory Surgery: No Pertinent History GI Surgical History: Cholecystectomy Genitourinary Surgical Hx: Kidney Surgery Musculskeletal Surgical Hx: No Pertinent History Female Surgical History: Hysterectomy, Tubal Ligation Other Surgical History: nasal septal repair - keloid removal, pacemaker/defib - Social History Smoking Status: Never smoker Exposure to second hand smoke: No Alcohol: None Drug Use: none Significant Family History: heart disease, diabetes, hypertension - Physical Exam Vital Signs: Vital Signs - 24 hr Temp Pulse Resp BP Pulse Ox 01/02/18 08:00 97.7 F 83 22 130/77 97 01/02/18 04:22 97.8 F 73 20 113/62 95 01/02/18 04:00 20 01/02/18 00:02 97.8 F 74 18 111/56 95 01/02/18 00:00 20 01/01/18 23:40 94 L 01/01/18 20:05 97.9 F 81 20 119/61 95 01/01/18 20:00 20 01/01/18 17:05 97.7 F 86 20 138/79 97 01/01/18 16:54 97.7 F 86 20 138/79 97 01/01/18 16:40 97 01/01/18 16:09 96 01/01/18 15:53 79 24 134/84 95 01/01/18 14:18 83 17 143/83 96 01/01/18 13:58 94 L 01/01/18 13:28 99.2 F 85 20 138/91 96 General Appearance: no apparent distress, alert Neurologic Exam: alert, oriented x 3, cooperative, normal mood/affect, nml cerebellar function, nml station & gait, sensation nml, No motor deficits Eye Exam: PERRL/EOMI, eyes nml inspection Respiratory Exam: crackles/rales Cardiovascular Exam: regular rate/rhythm, normal heart sounds, normal peripheral pulses Gastrointestinal/Abdomen Exam: soft, normal bowel sounds, No tenderness, No mass Extremity Exam: pedal edema, swelling Skin Exam: normal color, warm, dry, No rash Results - Labs Lab/Micro Results: Accuchecks Date 01/01/18 Time 21:50 Accucheck Value: 215 Lab Results-Last 24 Hours 01/01/18 01/01/18 01/01/18 Range/Units 14:15 14:15 14:15 WBC 5.3 (4.0-10.5) K/mm3 RBC 4.02 L (4.1-5.4) M/mm3 Hgb 12.9 (12.0-16.0) gm/dl Hct 37.3 (35-47) % MCV 92.8 (78-100) fl MCH 32.0 (26-32) pg MCHC 34.6 (32-36) g/dl RDW 13.0 (11.5-14.0) % Plt Count 121 L (150-450) K/mm3 MPV 11.9 H (6-9.5) fl Gran % 62.8 (36.0-66.0) % Eos # (Auto) 0.05 (0-0.5) Absolute Lymphs (auto) 1.59 (1.0-4.6) Absolute Monos (auto) 0.31 (0.0-1.3) Lymphocytes % 30.2 (24.0-44.0) % Monocytes % 5.9 (0.0-12.0) % Eosinophils % 0.9 (0.00-5.0) % Basophils % 0.2 (0.0-0.4) % Absolute Granulocytes 3.31 (1.4-6.9) Basophils # 0.01 (0-0.4) Sodium 142 (137-145) mmol/L Potassium 3.5 (3.5-5.1) mmol/L Chloride 105 (98-107) mmol/L Carbon Dioxide 29 (22-30) mmol/L Anion Gap 11.0 (5-15) MEQ/L BUN 18 H (7-17) mg/dL Creatinine 0.85 (0.52-1.04) mg/dL Estimated GFR > 60.0 ML/MIN Glucose 211 H (74-106) mg/dL Calcium 9.7 (8.4-10.2) mg/dL Total Bilirubin 0.50 (0.2-1.3) mg/dL AST 13 L (14-36) U/L ALT 15 (0-35) U/L Alkaline Phosphatase 116 (38-126) U/L Troponin I 0.027 (0.000-0.034) ng/mL NT-Pro-B Natriuret Pep 4340 H (0-900) pg/mL Serum Total Protein 5.9 L (6.3-8.2) g/dL Albumin 3.5 (3.5-5.0) g/dL 01/01/18 01/01/18 01/01/18 Range/Units 17:10 19:55 23:00 WBC (4.0-10.5) K/mm3 RBC (4.1-5.4) M/mm3 Hgb (12.0-16.0) gm/dl Hct (35-47) % MCV (78-100) fl MCH (26-32) pg MCHC (32-36) g/dl RDW (11.5-14.0) % Plt Count (150-450) K/mm3 MPV (6-9.5) fl Gran % (36.0-66.0) % Eos # (Auto) (0-0.5) Absolute Lymphs (auto) (1.0-4.6) Absolute Monos (auto) (0.0-1.3) Lymphocytes % (24.0-44.0) % Monocytes % (0.0-12.0) % Eosinophils % (0.00-5.0) % Basophils % (0.0-0.4) % Absolute Granulocytes (1.4-6.9) Basophils # (0-0.4) Sodium (137-145) mmol/L Potassium (3.5-5.1) mmol/L Chloride (98-107) mmol/L Carbon Dioxide (22-30) mmol/L Anion Gap (5-15) MEQ/L BUN (7-17) mg/dL Creatinine (0.52-1.04) mg/dL Estimated GFR ML/MIN Glucose (74-106) mg/dL Calcium (8.4-10.2) mg/dL Total Bilirubin (0.2-1.3) mg/dL AST (14-36) U/L ALT (0-35) U/L Alkaline Phosphatase (38-126) U/L Troponin I 0.037 H* 0.037 H* 0.035 H (0.000-0.034) ng/mL NT-Pro-B Natriuret Pep (0-900) pg/mL Serum Total Protein (6.3-8.2) g/dL Albumin (3.5-5.0) g/dL 01/02/18 01/02/18 01/02/18 Range/Units 02:00 02:00 02:00 WBC 5.1 (4.0-10.5) K/mm3 RBC 3.75 L (4.1-5.4) M/mm3 Hgb 12.0 (12.0-16.0) gm/dl Hct 35.1 (35-47) % MCV 93.6 (78-100) fl MCH 32.0 (26-32) pg MCHC 34.2 (32-36) g/dl RDW 12.9 (11.5-14.0) % Plt Count 113 L (150-450) K/mm3 MPV 11.9 H (6-9.5) fl Gran % (36.0-66.0) % Eos # (Auto) (0-0.5) Absolute Lymphs (auto) (1.0-4.6) Absolute Monos (auto) (0.0-1.3) Lymphocytes % (24.0-44.0) % Monocytes % (0.0-12.0) % Eosinophils % (0.00-5.0) % Basophils % (0.0-0.4) % Absolute Granulocytes (1.4-6.9) Basophils # (0-0.4) Sodium 139 (137-145) mmol/L Potassium 3.7 (3.5-5.1) mmol/L Chloride 101 (98-107) mmol/L Carbon Dioxide 31 H (22-30) mmol/L Anion Gap 10.2 (5-15) MEQ/L BUN 17 (7-17) mg/dL Creatinine 0.84 (0.52-1.04) mg/dL Estimated GFR > 60.0 ML/MIN Glucose 221 H (74-106) mg/dL Calcium 9.5 (8.4-10.2) mg/dL Total Bilirubin (0.2-1.3) mg/dL AST (14-36) U/L ALT (0-35) U/L Alkaline Phosphatase (38-126) U/L Troponin I 0.038 H* (0.000-0.034) ng/mL NT-Pro-B Natriuret Pep 3600 H (0-900) pg/mL Serum Total Protein (6.3-8.2) g/dL Albumin (3.5-5.0) g/dL Accuchecks Date 01/01/18 Time 21:50 Accucheck Value: 215 - Radiology Impressions Radiology Exams & Impressions: Radiology Procedures Category Date Time Status CHEST 1 VIEW (PORTABLE) Stat Exams 01/01/18 13:59 Completed - Other Procedures and Tests Respiratory Therapy 01/01/18 16:05 Oxygen NASAL CANNULA 2 lpm 01/01/18 17:03 Respiratory Therapy Assessment DAILY 01/01/18 21:00 BiPap/CPAP ROUTINE Assessment/Plan (1) Acute on chronic systolic (congestive) heart failure Current Visit: Yes Status: Acute Assessment & Plan: continue to diurese Code(s): I50.23 - ACUTE ON CHRONIC SYSTOLIC (CONGESTIVE) HEART FAILURE (2) Elevated troponin Current Visit: Yes Status: Acute Assessment & Plan: patient has no chest pain, paced rhythm on EKG with no acute changes. elevation related to chf exacerbation, will follow. Code(s): R74.8 - ABNORMAL LEVELS OF OTHER SERUM ENZYMES
[2018-01-02] MEDS: Effexor XR 75 MG PO SCH (08:39)
[2018-01-02] MEDS: Glucophage 500 MG PO SCH (08:39)
[2018-01-02] MEDS: Abilify 10 MG PO SCH (21:40)
[2018-01-02] MEDS: XARELTO 10 MG TABLET PO SCH (21:41)
[2018-01-02] MEDS: DESYREL 50 MG PO SCH (21:42)
[2018-01-02] MEDS: Klor Con 10 MEQ PO SCH (21:42)
[2018-01-03] MEDS: Sodium Chloride 0.9% 1000 ML 1,000 ML IV SCH (03:56)
[2018-01-03 06:07] LABS: BASOPHIL % 0.2 % (0.0-0.4); Basophil (Absolute #) 0.01 (0-0.4); Eosinophil % 1.9 % (0.00-5.0); Eosinophil (Absolute #) 0.09 (0-0.5); Granulocyte Absolute (ANC) 2.53 (1.4-6.9); Hematocrit 36.3 % (35-47); Hemoglobin 12.3 gm/dl (12.0-16.0); Lymphocyte (Absolute #) 1.85 (1.0-4.6); Lymphocytes % 38.8 % (24.0-44.0); Mean Cell Volume 93.6 fl (78-100); Mean Corpuscular Hemoglobin 31.7 pg (26-32); Mean Corpuscular Hgb Concent. 33.9 g/dl (32-36); Mean Platelet Volume 11.6 fl (6-9.5); Monocyte (Absolute #) 0.29 (0.0-1.3); Monocytes % 6.1 % (0.0-12.0); Platelet Count 121 K/mm3 (150-450); Red Blood Count 3.88 M/mm3 (4.1-5.4); Red Cell Distribution Width 12.9 % (11.5-14.0); White Blood Count 4.8 K/mm3 (4.0-10.5)
[2018-01-03 06:20] LABS: ANION GAP 9.6 MEQ/L (5-15); BLOOD UREA NITROGEN 18 mg/dL (7-17); CHLORIDE 102 mmol/L (98-107); Calcium 9.4 mg/dL (8.4-10.2); Carbon Dioxide 32 mmol/L (22-30); Creatinine 1 0.86 mg/dL (0.52-1.04); Glucose 196 mg/dL (74-106); NT PRO BNP 2590 pg/mL (0-900); Potassium 4.3 mmol/L (3.5-5.1); SODIUM 140 mmol/L (137-145); TROPONIN 0.026 ng/mL (0.000-0.034)
--- NOTE | 2018-01-03 08:17 | PCM.NOTE ---
Date and Time: 01/03/18 0811 Subjective Assessment: patient still feels short of breath and rattling in the chest. she had an episode of dizziness and shortness of breath in the restroom. she was sitting, was not straining for a bowel movement during the episode. no chest pain since admission Objective Exam General Appearance: no apparent distress, alert Skin Exam: normal color, warm, dry Respiratory Exam: crackles/rales Cardiovascular Exam: regular rate/rhythm, normal heart sounds Gastrointestinal/Abdomen Exam: soft, No tenderness, No mass Extremity Exam: normal inspection, normal range of motion OBJECTIVE DATA Vital Signs: Vital Signs - 24 hr Temp Pulse Resp BP Pulse Ox 01/03/18 07:09 97.8 F 79 20 112/55 96 01/03/18 04:14 98.4 F 71 20 115/56 96 01/03/18 03:50 20 01/03/18 00:00 18 01/02/18 23:27 97.8 F 91 H 18 136/60 96 01/02/18 20:00 16 01/02/18 19:16 98.4 F 76 20 117/67 97 01/02/18 19:15 90 18 96 01/02/18 16:17 97.7 F 82 18 109/73 95 01/02/18 11:48 97.6 F 64 20 124/72 96 Pain Assessment - Last Documented Pain Intensity 0 Pain Scale Used 0-10 Pain Scale Intake and Output: Intake & Output 12/31/17 01/01/18 01/02/18 01/03/18 11:59 11:59 11:59 11:59 Intake Total 3248 3210 Output Total 2800 3250 Balance 448 -40 Weight 113.5 kg 113.5 kg Lab Results: Accuchecks Date 01/02/18 Time 22:00 Accucheck Value: 238 Accucheck Value: 131 Accucheck Value: 162 Lab Results-Last 24 Hours 01/03/18 01/03/18 Range/Units 05:33 05:33 WBC 4.8 (4.0-10.5) K/mm3 RBC 3.88 L (4.1-5.4) M/mm3 Hgb 12.3 (12.0-16.0) gm/dl Hct 36.3 (35-47) % MCV 93.6 (78-100) fl MCH 31.7 (26-32) pg MCHC 33.9 (32-36) g/dl RDW 12.9 (11.5-14.0) % Plt Count 121 L (150-450) K/mm3 MPV 11.6 H (6-9.5) fl Gran % 53.0 (36.0-66.0) % Eos # (Auto) 0.09 (0-0.5) Absolute Lymphs (auto) 1.85 (1.0-4.6) Absolute Monos (auto) 0.29 (0.0-1.3) Lymphocytes % 38.8 (24.0-44.0) % Monocytes % 6.1 (0.0-12.0) % Eosinophils % 1.9 (0.00-5.0) % Basophils % 0.2 (0.0-0.4) % Absolute Granulocytes 2.53 (1.4-6.9) Basophils # 0.01 (0-0.4) Sodium 140 (137-145) mmol/L Potassium 4.3 (3.5-5.1) mmol/L Chloride 102 (98-107) mmol/L Carbon Dioxide 32 H (22-30) mmol/L Anion Gap 9.6 (5-15) MEQ/L BUN 18 H (7-17) mg/dL Creatinine 0.86 (0.52-1.04) mg/dL Estimated GFR > 60.0 ML/MIN Glucose 196 H (74-106) mg/dL Calcium 9.4 (8.4-10.2) mg/dL Magnesium 1.4 L (1.6-2.3) mg/dL Troponin I 0.026 (0.000-0.034) ng/mL NT-Pro-B Natriuret Pep 2590 H (0-900) pg/mL Radiology Exams: Radiology Procedures Category Date Time Status CHEST 1 VIEW (PORTABLE) Stat Exams 01/01/18 13:59 Completed Assessment/Plan (1) Acute on chronic systolic (congestive) heart failure Current Visit: Yes Status: Acute Assessment & Plan: continue IV lasix, will consult with [facility] cardiology due to episode this morning and minimal elevation of troponin Code(s): I50.23 - ACUTE ON CHRONIC SYSTOLIC (CONGESTIVE) HEART FAILURE (2) Elevated troponin Current Visit: Yes Status: Acute Assessment & Plan: no chest pain, no ekg changes Code(s): R74.8 - ABNORMAL LEVELS OF OTHER SERUM ENZYMES
[2018-01-03] MEDS: ENTRESTO 49 MG-51 MG TABLET PO SCH (09:43)
[2018-01-03] MEDS: Coreg 6.25 MG PO SCH (09:43)
[2018-01-03] MEDS: Glucophage 500 MG PO SCH (09:43)
[2018-01-03] MEDS: Effexor XR 75 MG PO SCH (09:43)
[2018-01-03] MEDS: Lasix 40 MG/4 ML IV SCH (09:45)
[2018-01-03 12:33] VITALS: BP 132/85; PULSE 87; O2SAT 98
--- NOTE | 2018-01-03 13:11 | PCM.DS ---
Discharge Summary Date of Admission: 01/01/18 16:41 Admitting Physician: AMADEO CHAVEZ Consults: Consults on Case 01/03/18 08:09 Consult Cardiology ROUTINE Primary Care Provider: AMADEO CHAVEZ Allergies Allergies Sulfa (Sulfonamide Antibiotics) Allergy (Unknown, Verified 11/11/17 17:27) Hospital Summary - Hospital Course Hospital Course: patient was admitted with chf exacerbation, increasing swelling and shortness of breath. pnd and orthopnea - Vitals & Intake/Output Vital Signs: Vital Signs Temperature 98 F 01/03/18 12:32 Pulse Rate 87 01/03/18 12:32 Respiratory Rate 20 01/03/18 12:32 Blood Pressure 132/85 01/03/18 12:32 O2 Sat by Pulse Oximetry 98 01/03/18 12:32 Intake & Output: Intake & Output 01/01/18 01/02/18 01/03/18 01/04/18 11:59 11:59 11:59 11:59 Intake Total 3248 3570 120 Output Total 2800 3500 400 Balance 448 70 -280 Weight 113.5 kg 113.5 kg - Lab Result Diagrams: 01/03/18 05:33 01/03/18 05:33 Lab Results-Last 24 Hrs: Accuchecks Date 01/02/18 Time 22:00 Accucheck Value: 180 Accucheck Value: 238 Accucheck Value: 131 Lab Results-Last 24 Hours 01/03/18 01/03/18 Range/Units 05:33 05:33 WBC 4.8 (4.0-10.5) K/mm3 RBC 3.88 L (4.1-5.4) M/mm3 Hgb 12.3 (12.0-16.0) gm/dl Hct 36.3 (35-47) % MCV 93.6 (78-100) fl MCH 31.7 (26-32) pg MCHC 33.9 (32-36) g/dl RDW 12.9 (11.5-14.0) % Plt Count 121 L (150-450) K/mm3 MPV 11.6 H (6-9.5) fl Gran % 53.0 (36.0-66.0) % Eos # (Auto) 0.09 (0-0.5) Absolute Lymphs (auto) 1.85 (1.0-4.6) Absolute Monos (auto) 0.29 (0.0-1.3) Lymphocytes % 38.8 (24.0-44.0) % Monocytes % 6.1 (0.0-12.0) % Eosinophils % 1.9 (0.00-5.0) % Basophils % 0.2 (0.0-0.4) % Absolute Granulocytes 2.53 (1.4-6.9) Basophils # 0.01 (0-0.4) Sodium 140 (137-145) mmol/L Potassium 4.3 (3.5-5.1) mmol/L Chloride 102 (98-107) mmol/L Carbon Dioxide 32 H (22-30) mmol/L Anion Gap 9.6 (5-15) MEQ/L BUN 18 H (7-17) mg/dL Creatinine 0.86 (0.52-1.04) mg/dL Estimated GFR > 60.0 ML/MIN Glucose 196 H (74-106) mg/dL Calcium 9.4 (8.4-10.2) mg/dL Magnesium 1.4 L (1.6-2.3) mg/dL Troponin I 0.026 (0.000-0.034) ng/mL NT-Pro-B Natriuret Pep 2590 H (0-900) pg/mL Micro Results-Entire Visit: Accuchecks Date 01/02/18 Time 22:00 Accucheck Value: 180 Accucheck Value: 238 Accucheck Value: 131 - Radiology Exams Ordered Rad Exams-Entire Visit: Radiology Procedures Category Date Time Status CHEST 1 VIEW (PORTABLE) Stat Exams 01/01/18 13:59 Completed - Procedures and Test Procedures and Tests throughout Hospitalization: Therapy Orders & Screens 01/01/18 16:05 Oxygen NASAL CANNULA 2 lpm Comment: Diagnosis: CHF 01/01/18 17:03 Respiratory Therapy Assessment DAILY Comment: Diagnosis: CHF 01/01/18 21:00 BiPap/CPAP ROUTINE Comment: Diagnosis: CHF Discharge Exam General Appearance: no apparent distress, alert Skin Exam: normal color, warm, dry Respiratory Exam: crackles/rales Cardiovascular Exam: regular rate/rhythm, normal heart sounds Gastrointestinal/Abdomen Exam: soft, No tenderness, No mass Extremity Exam: normal inspection, normal range of motion Final Diagnosis/Problem List - Final Discharge Diagnosis/Problem (1) Acute on chronic systolic (congestive) heart failure Current Visit: Yes Status: Acute Assessment & Plan: will transfer to [place] under the care of Dr Reyes as requested following cardiology consult (2) Elevated troponin Current Visit: Yes Status: Acute - Discharge Disposition: DC TO [facility] Condition: Fair Prescriptions: No Action Rivaroxaban 10 mg Tablet [Xarelto 10 mg Tablet] 20 mg PO HS Venlafaxine HCl [Effexor Xr] 150 mg PO DAILY Ropinirole HCl 0.5 mg [Requip 0.5 MG] 0.5 mg PO DAILY PRN PRN Reason: RLS Potassium Chloride 20 Meq [Klor-Con 20 MEQ] 20 meq HS Furosemide 40 mg BID Carvedilol 6.25 mg BID Metformin HCl 1,000 mg DAILY Aripiprazole [Abilify] 5 mg PO HS Trazodone HCl 50 mg PO HS Sacubitril/Valsartan [Entresto 24 mg-26 mg Tablet] 1 tablet PO BID Forms: Ambulance Transport Record, Transfer Record Inter-Agency
== END 2018-01-03 13:25 | disposition home or self-care (01) ==
LOC: ED 13:27 → MED SURG 16:41
PROVIDERS: ADMIT Family Medicine; ATTEND Family Medicine
DX: I50.23 Acute on chronic systolic (congestive) heart failure (principal); I50.84 End stage heart failure; R74.8 Abnormal levels of other serum enzymes; Z79.01 Long term (current) use of anticoagulants; Z79.899 Other long term (current) drug therapy; I25.10 Atherosclerotic heart disease of native coronary artery without angina pectoris; G47.30 Sleep apnea, unspecified; M19.90 Unspecified osteoarthritis, unspecified site; K21.9 Gastro-esophageal reflux disease without esophagitis; E11.9 Type 2 diabetes mellitus without complications
CPT/HCPCS: 36000; 36415; 71045; 80048; 80053; 82962; 83735; 83880; 84484; 85025; 85027; 93005; 93041; 93268; 94660; 94760; 96360; 96374; 99285; G0378; J1940; Q3014; A9270-GY

== ENCOUNTER 2022-01-30 15:17 | Emergency (ER) | payer MEDICARE ==
--- NOTE | 2022-01-30 16:22 | XRAY ---
Indication: Pain following fall. Comparison: None AP pelvis and 2 view right hip demonstrates osteopenia and mild degenerative changes both hips. No other bony, articular, or soft tissue abnormalities.
--- NOTE | 2022-01-30 16:22 | XRAY ---
Indication: Head injury following fall. Blood thinner therapy. Multiple contiguous axial images obtained through the head without contrast. 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 No acute intracranial hemorrhage, hydrocephalus, or mass effect. Fourth ventricle is midline without hydrocephalus. Bony calvarium intact. Visualized paranasal sinuses and mastoid air cells are clear. 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
--- NOTE | 2022-01-30 16:25 | XRAY ---
Indication: Pain following fall. Comparison: None 3 view right knee demonstrates osteopenia, moderate/advanced tricompartmental degenerative changes greatest lateral compartment, 2 posterior heterotopic ossifications, and tiny tibial tuberosity spurring. No other bony, articular, or soft tissue abnormalities.
--- NOTE | 2022-01-30 16:25 | XRAY ---
Indication: Pain following fall. Comparison: None 3 view left shoulder demonstrates osteopenia, moderate AC degenerative arthropathy, and partially visualized left pacemaker. No other bony, articular, or soft tissue abnormalities.
--- NOTE | 2022-01-30 16:53 | ERPHSYRPT ---
- History of Present Illness Time Seen by Provider: 01/30/22 15:35 Source: patient Exam Limitations: no limitations Patient Subjective Stated Complaint: Patient is c/o pain in her right hip, right knee, left shoulder, and buttocks following a fall at home. Ambulance staff assisted patient off of the floor and onto the cot to transfer her to the ED. Patient denies losing conciousness or hitting her head. Triage Nursing Assessment: Patient brought in by ambulance wearing oxygen at 2L per N/C; patient wears this at home. No SOB. She is alert and oriented. Patient worried about ipad and phone and was on the ipad a lot during the intial triage assessment. No skin alterations noted to c/o pain areas at this time. 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 She had no loss of consciousness she is on Xarelto. She complains of pain in the right hip right knee and left shoulder. She does not have any direct evidence of head trauma but she is on Xarelto so we will obtain a CT of the head. Occurred: just prior to arrival Reason for Fall: lost balance Injuries/Pain Location: upper extremity (Left shoulder), lower extremity (Right hip and knee) Loss of Consciousness: no loss of consciousness Quality: aching, throbbing Severity of Pain-Max: mild Severity of Pain-Current: mild Modifying Factors: Improves With: movement Associated Symptoms (Fall): extremity injury (Left shoulder right hip right knee) Allergies/Adverse Reactions: Sulfa (Sulfonamide Antibiotics) Allergy (Unknown, Verified 01/30/22 15:22) Home Medications: Rivaroxaban 10 mg Tablet [Xarelto 10 mg Tablet] 20 mg PO HS 03/11/15 [History] Ropinirole HCl 0.5 mg [Requip 0.5 MG] 0.5 mg PO DAILY PRN 03/11/15 [History] Venlafaxine HCl [Effexor Xr] 150 mg PO DAILY 03/11/15 [History] Furosemide 40 mg BID 06/01/17 [History] Metformin HCl 1,000 mg DAILY 06/01/17 [History] Potassium Chloride 20 Meq [Klor-Con 20 MEQ] 20 meq HS 06/01/17 [History] carvediloL [Carvedilol] 6.25 mg BID 06/01/17 [History] ARIPiprazole [Abilify] 5 mg PO HS 01/01/18 [History] Sacubitril/Valsartan [Entresto 24 mg-26 mg Tablet] 1 tablet PO BID 01/01/18 [History] Trazodone HCl 50 mg PO HS 01/01/18 [History] Hx Tetanus, Diphtheria Vaccination/Date Given: Yes Hx Influenza Vaccination/Date Given: No Hx Pneumococcal Vaccination/Date Given: No Immunizations Up to Date: Yes Travel Risk - International Travel Have you traveled outside of the country in past 3 weeks: No - Coronavirus Screening Are you exhibiting any of the following symptoms?: No Close contact with a COVID-19 positive Pt in past 14-21 Days: No - Vaccine Status Have you recieved a Covid-19 vaccination: No - Review of Systems Constitutional: No Fever, No Chills Eyes: No Symptoms Ears, Nose, & Throat: No Symptoms Respiratory: No Cough, No Dyspnea Cardiac: No Chest Pain, No Edema, No Syncope Abdominal/Gastrointestinal: No Abdominal Pain, No Nausea, No Vomiting, No Diarrhea Genitourinary Symptoms: No Dysuria Musculoskeletal: Joint Pain (Left shoulder right hip right knee), No Back Pain, No Neck Pain Skin: No Rash Neurological: No Dizziness, No Focal Weakness, No Sensory Changes Psychological: No Symptoms Endocrine: No Symptoms All Other Systems: Reviewed and Negative - Past Medical History Pertinent Past Medical History: Yes Neurological History: No Pertinent History ENT History: No Pertinent History Cardiac History: Congestive Heart Failure, Coronary Artery Disease, Hypertension, Other Respiratory History: Sleep Apnea Endocrine Medical History: Diabetes Type II Musculoskeletal History: Degenerative Disk Disease, Osteoarthritis GI Medical History: GERD History: No Pertinent History Psycho-Social History: Depression Female Reproductive Disorders: Menstrual Problems Other Medical History: 1/3 of a kidney. Torn rotator cuff right shoulder. 3 leaky valves. Pulmonary Hypertension - Past Surgical History Past Surgical History: Yes Neuro Surgical History: No Pertinent History Cardiac: No Pertinent History Respiratory: No Pertinent History Gastrointestinal: Cholecystectomy Genitourinary: Kidney Surgery Musculoskeletal: No Pertinent History Female Surgical History: Hysterectomy, Tubal Ligation Other Surgical History: nasal septal repair - keloid removal, pacemaker/defib - Social History Smoking Status: Never smoker Exposure to second hand smoke: No Alcohol Use: None Drug Use: none Patient Lives Alone: Yes Significant Family History: heart disease, diabetes, hypertension - Nursing Vital Signs Nursing Vital Signs: Initial Vital Signs Temperature 97.5 F 01/30/22 15:26 Pulse Rate 84 01/30/22 15:26 Respiratory Rate 18 01/30/22 15:26 Blood Pressure 133/64 01/30/22 15:26 O2 Sat by Pulse Oximetry 98 01/30/22 15:26 Pain Scale Pain Intensity 8 - Mainor Coma Score Best Eye Response ([place]): (4) open spontaneously Best Verbal Response ([place]): (5) oriented Best Motor Response ([place]): (6) obeys commands Mainor Total: 15 - Physical Exam General Appearance: mild distress Head Injury: no evidence of injury Eye Exam: PERRL/EOMI ENT Exam: airway nml Neck Exam: normal inspection, No tenderness Respiratory/Chest Exam: normal breath sounds, No chest tenderness, No respiratory distress Cardiovascular Exam: normal heart sounds, regular rate/rhythm Gastrointestinal Exam: soft, No tenderness, No distention, No guarding, No ecchymosis Back Exam: normal inspection, normal range of motion Extremity Exam: pain with movement (Pain with movement left shoulder right hip right knee) Neurologic Exam: alert, oriented x 3, cooperative Skin Exam: normal color, warm, dry SpO2 Interpretation: normal SpO2: 95 O2 Delivery: Room Air - Course Nursing assessment & vital signs reviewed: Yes - Radiology Exams Shoulder X-ray Interpretation: Other (Right hip is negative) Right Knee X-ray Interpretation: Other (Right knee is negative for acute findings) - CT Exams Head CT Interpretation: Negative (Negative for acute findings) Ordered Tests: Active Orders 24 hr Category Date Time Status HEAD WITHOUT CONTRAST [CT] Stat Exams 01/30/22 15:23 Completed HIP UNI (2V) INCL PEL IF DONE Stat Exams 01/30/22 15:58 Completed KNEE (3 VIEWS) Stat Exams 01/30/22 15:22 Completed SHOULDER Stat Exams 01/30/22 15:22 Completed - Progress Progress: improved - Departure Departure Disposition: Home Clinical Impression: Fall, Multiple contusions Condition: Stable Critical Care Time: No Referrals: AMADEO CHAVEZ MD [Primary Care Provider] - Follow up/PCP as directed Instructions: Contusion (DC), Preventing Falls in Older Adults
[2022-01-30 17:25] VITALS: BP 140/85; PULSE 78; O2SAT 99
== END 2022-01-30 17:28 | disposition home or self-care (01) ==
LOC: ED 15:17
DX: S70.01XA Contusion of right hip, initial encounter (principal); S80.01XA Contusion of right knee, initial encounter; S40.012A Contusion of left shoulder, initial encounter; M25.551 Pain in right hip; M25.561 Pain in right knee; M25.512 Pain in left shoulder; Z79.01 Long term (current) use of anticoagulants; W18.39XA Other fall on same level, initial encounter; Z99.81 Dependence on supplemental oxygen; Z79.899 Other long term (current) drug therapy; I10 Essential (primary) hypertension; E11.9 Type 2 diabetes mellitus without complications
CPT/HCPCS: 70450; 73030; 73502; 73562; 99283